=== PATIENT | male | born 1945 | race Caucasian/White ===

== ENCOUNTER → 2016-06-17 | Day surgery (SDC) | payer MEDICARE, OTHER ==
[~2016-06-17] MED LIST: IOHEXOL 180 MG/ML 20 ML VIAL (for RAD DIAG) ONE; LACTATED RINGER'S 1000 ML INJ 1,000 ML ONE; PROPOFOL 200 MG/20 ML AMP IV ONE; TRIAMCINOLONE ACETONIDE 40 MG/ML VIAL ONE
--- NOTE | 2016-06-17 16:42 | TN ---
cc: [facility] DATE OF SURGERY 06/17/16 PREOPERATIVE 1. Osteoarthritis of the right hip. 2. Arthrofibrosis, right hip. POSTOPERATIVE DIAGNOSIS 1. Osteoarthritis of the right hip. 2. Arthrofibrosis, right hip. PROCEDURE 1. Manipulation right hip under anesthesia. 2. Arthrogram of the right hip. 3. Injection of Kenalog right hip, 40 milligrams. 4. Use of fluoroscopy for percutaneous guidance. 5. Intraoperative x-ray right hip, two views, post arthrogram. SURGEON Vern Arnold MD ANESTHESIA TIVA. ESTIMATED BLOOD LOSS Minimal. INDICATION This is a 71-year-old male with significant right hip pain. The patient has had a hard time getting up and walking because of progressive arthritis and loss of range of motion of the right hip. Investigative studies are consistent with extensive arthritis to the right hip. Despite conservative care the patient is painful and symptotic. He now presents for surgical treatment. PROCEDURE The patient was brought to the operating, given limited sedation. The right hip was evaluated under anesthesia. Under examination the right hip range of motion was flexion 80, extension 0, internal rotation 20, external rotation 15, adduction 10, abduction 25. Post manipulation range of motion extension 0, flexion 105 degrees, internal rotation 25, external rotation 30, adduction 20, abduction 35. The right hip was scrubbed with alcohol, followed by Hibiclens, followed by Chloraprep and draped sterilely. A timeout had been previously done. A 22 gauge spinal needle was advanced under fluoroscopy to the anterior aspect of the right hip joint. This was placed into an intraarticular position. An arthrogram was performed showing pitting and erosive changes. Inflammatory changes were noted. No leak of contrast was noted. The hip was injected with 40 milligrams of Kenalog and 3 cc of 1% lidocaine plain. The hip was run through a second range of motion. Intraoperative x-rays were obtained. This showed changes on the arthrogram as noted above and no evidence of a fracture. The patient was awakened and taken to recovery room in satisfactory condition. Vern Arnold MD MCG/EO /4:22 PM /4:25 PM
== END | disposition home or self-care (01) ==
LOC: ESDC 13:52
PROVIDERS: ATTEND Orthopaedic Surgery Orthopaedic Surgery of the Spine
DX: M16.11 Unilateral primary osteoarthritis, right hip (principal); M24.651 Ankylosis, right hip
CPT/HCPCS: 01200; 27095; 27275; 73502; 77002; J3010; J3301; J7120; Q9965; 77003